=== PATIENT | female | born 1995 | race Caucasian/White ===

== ENCOUNTER 2017-01-20 13:20 | Emergency (ER) | payer BC ==
[2017-01-20 13:38] VITALS: BP 108/73; PULSE 71; TEMP 98.1; BMI 21.0
[2017-01-20] MEDS ORDERED: ONDANSETRON 4 MG/2 ML VIAL IVPB ONE (13:41)
[2017-01-20] MEDS ORDERED: CEFTRIAXONE 1 GM in DEXTROSE 5%-WATER - 50 ML IVPB ONE (13:41)
[2017-01-20] MEDS ORDERED: ONDANSETRON 4 MG/2 ML VIAL ONE (13:44)
[2017-01-20] MEDS ORDERED: cefTRIAXone SODIUM 1 GM VIAL ONE (13:44)
--- NOTE | 2017-01-20 13:46 | PDOC ---
History of Present Illness - General Chief Complaint: Redness To Affected Area Stated Complaint: RIGHT GROIN TATOO REDNESS Time Seen by Provider: 01/20/17 13:39 History Source: Patient Exam Limitations: No Limitations - History of Present Illness Initial Comments: 01/20/17 13:41 21y F no pmhx presents with pain to the R inguinal area - states she had a tattoo a bout 1 week ago at a tatoo shop and there has been increased redness and pain in the area and she has had subjectve fever and 1 episode of nbnb vomiting this morning. the pt also endorses some yellowish discharge this morning that has resolved. pt has no other medical problems Past History - Past Medical History Allergies/Adverse Reactions: Allergies Allergy/AdvReac Type Severity Reaction Status Date / Time No Known Allergies Allergy Verified 01/20/17 13:30 Home Medications: Ambulatory Orders Biotin PO DAILY 01/20/17 Clonazepam [Klonopin] 1 mg PO DAILY 01/20/17 Doxycycline Hyclate 100 mg PO BID #20 capsule 01/20/17 Nicotine [Nicotine Patch] 1 each TD DAILY 01/20/17 Norgestimate-Ethinyl Estradiol [Trinessa Lo Tablet] 1 each PO HS 01/20/17 Sertraline HCl [Zoloft] 200 mg PO DAILY 01/20/17 Seizures: Yes (1 EPISODE 12/14/16) - Psycho/Social/Smoking Cessation Hx Anxiety: Yes Suicidal Ideation: No Smoking History: Former smoker Have you smoked in the past 12 months: Yes If you are a former smoker, when did you quit?: NOV 2016 Information on smoking cessation initiated: Yes 'Breaking Loose' booklet given: 01/20/17 Hx Alcohol Use: No (STOPPED 1 MONTH AGO) Drug/Substance Use Hx: No Substance Use Type: None Review of Systems - Review of Systems Able to Perform ROS?: Yes Comments:: 01/20/17 13:43 Constitutional - +subjective fever no reported Chills, weakness, HEENT: no reported vision changes, sore throat Respiratory: no reported cough, sob, hemoptysis Cardiac: no reported chest pain, palpitations, light headedness, leg swelling Abd/GI: + nausea, vomiting,no reported abd pain, blood per rectum, melena, diarrhea : no reported dysuria, frequency, discharge Musculskelatal - no reported back pain, joint swelling skin - +Rash no reported bruising, erythema, neurological: no reported headache, numbness, focal weakness, tingling, ataxia, weakness hematologic: no reported anemia, easy bruising, easy bleeding *Physical Exam - Vital Signs Last Vital Signs Temp Pulse Resp BP Pulse Ox 98.1 F 71 15 108/73 100 01/20/17 13:27 01/20/17 13:27 01/20/17 13:27 01/20/17 13:27 01/20/17 13:27 - Physical Exam Comments: 01/20/17 13:44 GENERAL: The patient is awake, alert, and fully oriented, Nontoxic - in no acute distress. HEAD: Normocephalic, atraumatic. EYES: extraocular movements intact, sclera anicteric, conjunctiva clear. ENT: Normal voice, Moist mucous membranes. NECK: Normal range of motion, supple LUNGS: Breath sounds equal, clear to auscultation bilaterally. No wheezes, no rhonchi, no rales. HEART: Regular rate and rhythm, normal S1 and S2 without murmur, rub or gallop. ABDOMEN: Soft, nontender, normoactive bowel sounds. No guarding, no rebound. No CVA tenderness EXTREMITIES: Normal range of motion, no edema. No clubbing or cyanosis. No cords, erythema, or tenderness. NEUROLOGICAL: No facial assymetry, Normal speech, PSYCH: Normal mood, normal affect. SKIN: +tattoo of balloon over R hip with mild erythema, tendernses, and is warm to th etouch, no active discharge, ED Treatment Course - LABORATORY CBC & Chemistry Diagram: 01/20/17 14:00 01/20/17 14:00 Medical Decision Making - Medical Decision Making 01/20/17 13:45 21y F presents with what appeaers to be an infected tatoo vs. rejection will ck labs as pt endorses subjective fever will cover with bacitracin will give a dose of iv abx 01/20/17 15:06 labs unremarkable will d/c the pt with doxycyclin for 10 days pmd fu for wound reevaluation return precautions were discussed I discussed the physical exam findings, ancillary test results and final diagnoses with the patient. I answered all of the patient's questions. The patient was satisfied with the care received and felt comfortable with the discharge plan and treatment plan. The patient will call their primary care physician within 24 hours to arrange follow-up and will return to the Emergency Department with any new, persistent or worsening symptoms. *DC/Admit/Observation/Transfer Diagnosis at time of Disposition: Tattoo reaction Cellulitis Qualifiers: Site of cellulitis: trunk Site of cellulitis of trunk: abdominal wall Qualified Code(s): L03.311 - Cellulitis of abdominal wall - Discharge Dispostion Disposition: HOME Condition at time of disposition: Improved Admit: No - Prescriptions Prescriptions: Doxycycline Hyclate 100 mg PO BID #20 capsule - Referrals Referrals: [facility] [Provider Group] - Patient Instructions Printed Discharge Instructions: DI for Cellulitis -- Adult Additional Instructions: Return to the emergency department immediately with ANY new, persistent or worsening symptoms including any redness, fever/chills, or other concerns. Take the antibiotics as prescribed. Take tylenol or ibuprofen as needed for pain. You MUST call and follow up with your doctor in 2-3 days for further evaluation of your infection. Results were discussed with you. Please make sure your doctor reviews the results of your emergency evaluation.
[2017-01-20 14:21] LABS: PH,URINE 7.5 (4.5-8); URINE BILIRUBIN Negative (NEGATIVE); URINE BLOOD Negative (NEGATIVE); URINE GLUCOSE (UA) Negative (NEGATIVE); URINE KETONE Negative (NEGATIVE); URINE NITRITE Negative (NEGATIVE); URINE PROTEIN Negative (NEGATIVE); URINE UROBILINOGEN 1.0 E.U/dl (0.2-1.0)
[2017-01-20 14:22] LABS: URINE APPEARANCE HAZY; URINE COLOR YELLOW; URINE LEUK ESTERASE TRACE (NEGATIVE)
[2017-01-20 14:37] LABS: BASOPHIL 1.5 % (0-2.0); EOSINOPHIL 2.6 % (0-4.5); MCH 28.4 pg (25.7-33.7); MCHC 33.3 g/dl (32.0-36.0); MEAN CELL VOLUME 85.2 fl (80-96); MEAN PLT VOLUME 8.3 fl (7.5-11.1); NEUTROPHILS 60.2 % (42.8-82.8); PLATELET COUNT 337 K/MM3 (134-434); RDW 12.8 % (11.6-15.6); WHITE BLOOD COUNT 6.5 K/mm3 (4.0-10.0)
[2017-01-20 14:48] LABS: ALBUMIN 3.9 g/dl (3.5-5.0); ALK PHOS 55 U/L (32-92); ANION GAP 9 (8-16); BILIRUBIN,TOTAL 0.4 mg/dl (0.2-1.0); CALCIUM 9.8 mg/dl (8.4-10.2); CO2 26 mmol/L (22-28); CREATININE 0.8 mg/dl (0.6-1.3); GLUCOSE,RANDOM 73 mg/dl (74-106); SGOT/AST 26 U/L (10-42); SGPT/ALT 14 U/L (10-40); TOT PROT 7.2 g/dl (6.4-8.3)
[2017-01-20 14:49] LABS: URINE RBC 0-3 /hpf (0-3)
[2017-01-20 15:51] LABS: HIV 1 & 2 AB NEGATIVE; HIV 1 AGp24 NEGATIVE
== END 2017-01-20 15:23 | disposition home or self-care (01) ==
LOC: FER 13:20
DX: L03.311 Cellulitis of abdominal wall (principal); L81.8 Other specified disorders of pigmentation; Z87.891 Personal history of nicotine dependence
CPT/HCPCS: 36415; 80053; 81003; 81015; 84703; 85025; 87389; 99283-25

== ENCOUNTER 2018-08-01 09:29 | Emergency (ER) | payer BC ==
--- NOTE | 2018-08-01 09:42 | PDOC ---
History of Present Illness - General Chief Complaint: Pain Stated Complaint: LLQ PAIN Time Seen by Provider: 08/01/18 09:32 History Source: Patient Exam Limitations: No Limitations - History of Present Illness Initial Comments: 08/01/18 11:07 Luis 22 YOF with h/o depression p/w increasing LLQ/suprapubic abdominal pain, nausea, and fevers, VB x 1 day. AP described as sharp and nonradiating, worsening and no exacerbating factors. Dark red vaginal bleeding since yesterday , changed out pad in 5-8 hours, since resolving, no prolong use of tampon. Tolerating PO and fluid intake. +dysuria; treated for UTI x bactrim and cipro course x 10 days previously. Tmax 101.1, s/p antipyretics last night. +chronic LLQ/suprapubic pain x 2-3 months, a/w Irregular menses since April 11, 2018, amenorrhea x 2 months prior to resumption end of June 2018 and LMP ~2 weeks ago, but unclear due to irregularity.. last preg test negative ~1-2 month ago +sexually active regularly with one partner, no IUD or OCP use. No contraception. Denies STD history, has furnace worker appointment to discuss safe sex STD testing and eval for pelvic pain in 2 days. Past History - Past Medical History Allergies/Adverse Reactions: Allergies Allergy/AdvReac Type Severity Reaction Status Date / Time No Known Allergies Allergy Verified 08/01/18 09:30 Home Medications: Ambulatory Orders Sertraline HCl [Zoloft] 200 mg PO HS 01/20/17 Lamotrigine [Lamictal Xr] 100 mg PO HS 08/01/18 Seizures: Yes (1 EPISODE 12/14/16) - Suicide/Smoking/Psychosocial Hx Smoking History: Former smoker Have you smoked in the past 12 months: Yes If you are a former smoker, when did you quit?: NOV 2016 'Breaking Loose' booklet given: 01/20/17 Hx Alcohol Use: No (STOPPED 1 MONTH AGO) Drug/Substance Use Hx: No Substance Use Type: None Review of Systems - Review of Systems Able to Perform ROS?: Yes Comments:: 08/01/18 11:05 GENERAL/CONSTITUTIONAL: + fever or chills. No weakness. no sweats. HEAD, EYES, EARS, NOSE AND THROAT: No congestion. CARDIOVASCULAR: No chest pain or palpitations, syncope or edema. RESPIRATORY: No SOB, cough, wheezing, or hemoptysis. GASTROINTESTINAL + abdominal pain, nausea/vomiting. No diarrhea or constipation. GENITOURINARY: +vaginal bleeding, dysuria, no urgency or frequency. MUSCULOSKELETAL: No joint or muscle swelling or pain. +back pain. SKIN: No rash or changes in skin color or lesions. NEUROLOGIC: No headache or dizziness HEMATOLOGIC/LYMPHATIC: No anemia, easy bruising/bleeding, or history of blood clots. ALLERGIC/IMMUNOLOGIC: No allergies All other systems reviewed and negative, or as documented in HPI. *Physical Exam - Physical Exam Comments: 08/01/18 11:05 General: Well appearing, awake and alert, NAD. HEENT: NCAT, PERRL, EOMI, clear conjunctiva, anicteric, moist mucus membranes, clear oropharynx, no oral lesions.. Neck: neck supple, FROM Resp: CTAB, normal and even respirations, no respiratory distress CVS: RRR, no murmurs, 2+ peripheral pulses throughout, no peripheral edema Abdomen: soft, +LLQ and suprapubic Tenderness. no CVAT. : normal external genitalia, no lesions, scant brown discharge, no CMT, +left adnexal tenderness. Smooth and pink cervix, closed. Back: nontender, normal inspection and ROM MSK: no edema, VELEZ x4, ROM intact. Neuro: alert, oriented appropriately; no focal neurologic deficits. SILT, 5/5 distal and prox strength in all extrem. speech clear. Skin: warm and well perfused, cap refill <2 sec, normal color ED Treatment Course - LABORATORY CBC & Chemistry Diagram: 08/01/18 10:15 08/01/18 10:15 Medical Decision Making - Medical Decision Making 08/01/18 11:07 [place] 22 YOF with h/o depression p/w increasing LLQ/suprapubic abdominal pain, nausea, and fevers, VB x 1 day. Unclear LMP, sexually active. DDx. ovarian cyst, ovarian cyst rupture, ectopic preganancy, early , UTI, pyelonephritis, complete vs incomplete vs septic , menses, diverticulitis, dysmenorrhea, DUB. vitals reviewed, wnl., no fever. bedside US attempted, eccentric appearing gestational sac in uterus, no pelvic FF or in morison's pouch. pelvic exam unremarkable, no active bleeding. repeat VS wnl. labs and lytes wnl, UA unremarkable, f/u culture preg test positive, beta hcg ~452, Rh status pending. pt to followup on txs result TVUS with questionable gestational sac and endometrial thickening, possibly blood clots. no definitive IUP or ectopic identified this could represent ongoing miscarriage vs early . pain control here, no narcotics or nsaids as d/w patient. smoking cessation advised. results d/w patient, given tylenol and fluids, still severe pain so low dose morphine provided for analgesia, no narcotics for home. c/w tylenol call to primary fibrous plasterer at [facility] Dr. Rabia Venegas. spoke with professional shopper doctor Dr. Shultz with office. bleeding precautions, worsening AP or fevers/signs of infection. questions and answers provided. verbalized understanding of impression and plan. DC in stable condition with furnace worker f/u in 2 days for beta check and repeat US in timely fashion ~1 week. 08/01/18 12:54 08/01/18 13:23 *DC/Admit/Observation/Transfer Diagnosis at time of Disposition: Threatened in early , Vaginal bleeding in - Discharge Dispostion Disposition: HOME Condition at time of disposition: Good Decision to Admit order: No - Referrals Referrals: Tania Morales MD [Primary Care Provider] - Rabia Venegas MD [Non Staff, Medical] - - Patient Instructions Printed Discharge Instructions: DI for Miscarriage, DI for Vaginal Bleeding During Additional Instructions: there are several possibilities for your abdominal pain and bleeding: miscarriage, early with bleeding or ectopic. your ultrasound is indeterminate and does not confirm a with a beta hcg level at 450. your blood type did not return yet on this visit, followup with your blood type results in case you need certain medication to prevent future complications. return precautions discussed (including but not limited to worsening pain or symptoms), fevers, or signs of infection, worsening abdominal pain and bleeding , chest pain, respiratory distress, inability to tolerate oral intake, dehydration, syncope, or neurologic changes). Follow up with PMD and/or specialist Dr. Venegas in 2 days as scheduled and as recommended, follow up information provided, take medications as instructed for duration of time. avoid motrin/aleve, advil. may take Tylenol every 6 hours as needed. continue with supportive care, avoid triggers and precipitants. avoid sexual activity until cleared by your doctor. - Post Discharge Activity
[2018-08-01 09:51] LABS: PH,URINE 5.5 (4.5-8); URINE APPEARANCE Clear; URINE BILIRUBIN Negative (NEGATIVE); URINE COLOR Amber; URINE GLUCOSE (UA) Negative (NEGATIVE); URINE KETONE Negative (NEGATIVE); URINE LEUK ESTERASE Negative (NEGATIVE); URINE NITRITE Negative (NEGATIVE); URINE PROTEIN Negative (NEGATIVE); URINE UROBILINOGEN 0.2 (0.2-1.0)
[2018-08-01 09:53] VITALS: BMI 21.0
[2018-08-01] MEDS ORDERED: SODIUM CHLORIDE 0.9% 500 ML INFUS.BAG IV ONE (09:59)
[2018-08-01] MEDS ORDERED: ONDANSETRON 4 MG/2 ML VIAL IVPUSH ONE (09:59)
[2018-08-01] MEDS ORDERED: ACETAMINOPHEN 325 MG TABLET (FP) PO ONE (09:59)
[2018-08-01] MEDS ORDERED: ACETAMINOPHEN 325 MG TABLET (FP) ONE (10:01)
[2018-08-01] MEDS ORDERED: ONDANSETRON 4 MG/2 ML VIAL ONE (10:02)
[2018-08-01 10:13] LABS: EPI CELLS MODERATE /HPF; URINE MUCUS MODERATE
[2018-08-01 10:32] LABS: BASO % 0.7 % (0-2.0); EOS % 2.8 % (0-4.5); HEMATOCRIT 46.4 % (32.4-45.2); HEMOGLOBIN 15.3 GM/dl (10.7-15.3); LYMPH % 29.3 % (8-40); MCH 29.4 pg (25.7-33.7); MEAN CELL VOLUME 89.3 fl (80-96); MEAN PLT VOLUME 8.1 fl (7.5-11.1); MONO % 5.7 % (3.8-10.2); NEUT % 61.5 % (42.8-82.8); PLATELET COUNT 322 K/MM3 (134-434); RBC 5.19 M/mm3 (3.60-5.2); RDW 12.6 % (11.6-15.6); WHITE BLOOD COUNT 7.5 K/mm3 (4.0-10.8)
[2018-08-01 10:39] LABS: ALBUMIN 4.6 g/dl (3.5-5.0); ALK PHOS 60 U/L (32-92); ANION GAP 9 MMOL/L (8-16); BILIRUBIN,TOTAL 0.7 mg/dl (0.2-1.0); BLOOD UREA NITROGEN 14 mg/dl (7-18); CALCIUM 9.5 mg/dl (8.4-10.2); CHLORIDE 99 mmol/L (98-107); CO2 29 mmol/L (22-28); CREATININE 0.9 mg/dl (0.6-1.3); GLUCOSE,RANDOM 91 mg/dl (74-106); POTASSIUM 3.9 mmol/L (3.5-5.1); SGOT/AST 24 U/L (10-42); SGPT/ALT 19 U/L (10-40); SODIUM 137 mmol/L (136-145); TOT PROT 7.2 g/dl (6.4-8.3)
[2018-08-01 12:28] LABS: LIPASE 229 U/L (73-393)
[2018-08-01] MEDS ORDERED: morphine CARPU-JECT 4 MG/1 ML DISP.SYRIN IVPUSH ONE (12:28)
[2018-08-01 12:57] VITALS: BP 107/76; PULSE 73; TEMP 98.8
[2018-08-01] MEDS ORDERED: morphine SULFATE 4 MG/ML VIAL ONE (12:58)
== END 2018-08-01 13:31 | disposition home or self-care (01) ==
LOC: FER 09:29
PROC: 3E033NZ Introduction of Analgesics, Hypnotics, Sedatives into Peripheral Vein, Percutaneous Approach (ICD-10-PCS; principal; 2018-08-01)
PROC: 3E033GC Introduction of Other Therapeutic Substance into Peripheral Vein, Percutaneous Approach (ICD-10-PCS; 2018-08-01)
PROC: 3E0337Z Introduction of Electrolytic and Water Balance Substance into Peripheral Vein, Percutaneous Approach (ICD-10-PCS; 2018-08-01)
DX: O20.0 Threatened abortion (principal); Z3A.00 Weeks of gestation of pregnancy not specified
CPT/HCPCS: 36415; 76817-TC; 80053; 81003; 81015; 83690; 84702; 84703; 85025; 86850; 86900; 86901; 87086; 87389; 87491; 87591; 87661; 99283-25

== ENCOUNTER 2023-04-11 17:30 | Emergency (ER) | payer BC ==
[2023-04-11 18:13] VITALS: BP 121/86; PULSE 76; RESP 20; TEMP 98.3; BMI 25.6
[2023-04-11 18:40] LABS: HEMATOCRIT 42.2 % (32.4-45.2); HEMOGLOBIN 14.2 G/dL (10.7-15.3); MCH 30.2 pg (25.7-33.7); MCHC 33.7 g/dl (32.0-36.0); MEAN CELL VOLUME 89.5 fl (80-96); MEAN PLT VOLUME 8.4 fl (7.5-11.1); PLATELET COUNT 245.1 10^3/uL (134-434); RBC 4.71 10^6/uL (3.60-5.2); RDW 13.7 % (11.6-15.6); WHITE BLOOD COUNT 8.8 10^3/uL (4.0-10.8)
[2023-04-11 18:54] LABS: ALBUMIN 4.3 g/dl (3.4-5.0); BILIRUBIN,TOTAL 0.4 mg/dl (0.2-1); CALCIUM 9.1 mg/dl (8.5-10); CREATININE 0.8 mg/dl (0.55-1.3); POTASSIUM 3.7 mmol/L (3.5-5.1); TOT PROT 6.8 g/dl (6.4-8.2)
[2023-04-11] MEDS ORDERED: ACETAMINOPHEN 325 MG TABLET (FP) PO ONE (18:55)
[2023-04-11] MEDS ORDERED: ACETAMINOPHEN 325 MG TABLET (FP) ONE (19:10)
== END 2023-04-11 22:26 | disposition home or self-care (01) ==
LOC: FER 17:30
DX: R10.2 Pelvic and perineal pain (principal); K59.00 Constipation, unspecified; R11.10 Vomiting, unspecified; R14.0 Abdominal distension (gaseous); N83.202 Unspecified ovarian cyst, left side
CPT/HCPCS: 36415; 74177-TC; 76830-TC; 80053; 81003; 81015; 85027; 87077; 87086; 87491; 87591; 87661; 99285-25